=== PATIENT | female | born 1990 | race Caucasian/White ===

== ENCOUNTER 2024-05-28 20:52 | Emergency (ER) | payer SELFPAY ==
[2024-05-28] MEDS ORDERED: NA CHLORIDE 0.9% 2,000 ML ONE (21:32)
[2024-05-28] MEDS ORDERED: DICYCLOMINE HCL 20 MG/2 ML AMP IM ONE (21:32)
[2024-05-28] MEDS ORDERED: METOCLOPRAMIDE 10 MG/2mL INJ ONE (21:32)
[2024-05-28] MEDS ORDERED: ONDANSETRON 4 MG/2 ML VIAL ONE (21:32)
[2024-05-28] MEDS ORDERED: KETOROLAC 30 MG/ML INJ ONE (21:32)
[2024-05-28 21:52] LABS: Absolute Lymphocytes (CBC) 0.8 K/uL (0.7-4.9); Absolute Monocytes 0.4 K/uL (0.1-1.3); Absolute Neutrophil 14.8 K/uL (1.8-8.0); Basophils % 0.2 % (0-1.3); Hematocrit 41.2 % (36.0-45.0); Hemoglobin 14.1 g/dL (12.0-15.0); Lymphocytes % 4.8 % (15.3-44.8); MCHC 34.2 g/dL (32.0-36.0); MCV 93.4 fL (80-100); Monocytes % 2.7 % (3.3-12.3); Neutrophils % 92.3 % (41.7-73.7); Platelets 315 thou/uL (152-406)
[2024-05-28 22:05] LABS: Albumin 4.2 g/dL (3.4-5.0); Bilirubin Total 0.5 mg/dL (0.2-1.0); Globulin 4.2 g/dL (2.3-3.5); Protein, Total 8.4 g/dL (6.4-8.2)
[2024-05-28 22:40] LABS: Band Neutrophils 2 % (0-1); Blood Morphology Comment NOT SEEN (NOT SEEN); Differential Total Cells Count 100; Lymphocytes 3 % (15-42); Monocytes 5 % (0-10); Platelet Estimate ADEQ; Segmented Neutrophils 90 % (40-80)
[2024-05-29] MEDS ORDERED: PROMETHAZINE INJ 25 MG/ML AMP ONE ×2 (00:30→02:35)
[2024-05-29 01:15] LABS: Specific Gravity > 1.030 (1.005-1.030)
--- NOTE | 2024-05-29 01:18 | RAD REPORT ---
EXAM DESCRIPTION: Abdomen Pelvis W Contrast RadLex: CT ABDOMEN PELVIS WITH IV CONTRAST CLINICAL HISTORY: 33 years Female; ABD PAIN; IV ONLY Bed Name: 26 TECHNIQUE: CT of the abdomen and pelvis [with] intravenous contrast. All CT scans at this facility use dose modulation, iterative reconstruction, and/or weight based dosi ng when appropriate to reduce radiation dose to as low as reasonably achievable. COMPARISON: None. FINDINGS: Lower thorax: Lung bases are clear Abdomen: Stomach: Within normal limits Liver: No focal lesions. Enlarged. No intrahepatic ductal distention. Gallbladder: Nondistended Pancreas: Within normal limits Spleen: Subcentimeter hypodensities in the spleen, too small to characterize. Right kidney: No hydronephrosis. No focal lesion. Left kidney: No hydronephrosis. No focal lesion. Adrenal glands: Within normal limits Vascular structures: Within normal limits Nodes: No lymphadenopathy by size criteria Pelvis: Small bowel: No significant distention. Appendix: Within normal limits Colon: No distention or acute pericolonic edema. Peritoneum: No free intraperitoneal fluid or air. Bones: No acute bone findings. Bladder: Unremarkable. Reproductive organs: No acute findings. IMPRESSION: 1. No acute abdominopelvic findings. 2. Hepatomegaly. Electronically signed by: Velia Link MD 05/29/2024 01:12 AM [facility] Due to temporary technical issues with the PACS/Reonomy reporting system, reports are being trixie d by the in-house radiologist without review as a courtesy to ensure prompt reporting the interpreting radiologist is fully responsible for the content of the report. Transcribed Date/Time: 05/29/2024 1:18 AM
[2024-05-29 01:23] LABS: Specific Gravity > 1.030 (1.005-1.030); Sqamous Epithelial <5 /HPF (None Seen); Urine Bacteria <20 /HPF (<20); Urine Bilirubin NEGATIVE (Negative); Urine Blood Negative (Negative); Urine Clarity Clear (Clear); Urine Color Light-Yellow (Yellow); Urine Culture Reflex Order NOT NEEDED; Urine Glucose TRACE (Negative); Urine Ketones 4+ (Over) (Negative); Urine Microscopic Reflex YN ORDER UMIC; Urine Mucus Slight /HPF (None Seen); Urine Nitrite NEGATIVE (Negative); Urine Protein 1+ (Negative); Urine RBC <5 /HPF (None Seen); Urine Urobilinogen Normal (Normal); Urine WBC <5 /HPF (<5)
--- NOTE | 2024-05-29 01:44 | EDPHYS ---
Physician Documentation [facility] Name: Claire Brink Age: 33 yrs Sex: Female : 1990 Arrival Date: 05/28/2024 Time: 20:52 Bed 26 Private MD: ED Physician Myron Kim HPI: 05/28 21:23 This 33 yrs old Female presents to ER via Ambulatory with complaints of sp4 Vomiting, Weakness. 05/29 01:41 33-year-old female presents with moderate to severe vomiting and generalized weakness.. sp4 01:42 Patient reports symptoms started 2 days ago.. 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 - Infectious Disease History:: Denies. - Social history:: Smoking status: Reported history of juuling and/or vaping. - Family history:: not pertinent. ROS: 05/29 01:42 Constitutional: Negative for fever, chills, and weight loss, positive nausea, positive sp4 vomiting, positive generalized weakness, positive abdominal discomfort All other systems are negative, Exam: 01:42 Constitutional: This is a well developed, well nourished patient who is awake, alert, sp4 and in no acute distress. Head/Face: Normocephalic, atraumatic. Eyes: Pupils equal round and reactive to light, extra-ocular motions intact. Lids and lashes normal. Conjunctiva and sclera are not injected. Cornea within normal limits. Periorbital areas with no swelling, redness, or edema. ENT: Nares patent. No nasal discharge, no septal abnormalities noted. Tympanic membranes are normal and external auditory canals are clear. Oropharynx with no redness, swelling, or masses, exudates, or evidence of obstruction, uvula midline. Mucous membranes moist. Neck: Trachea midline, no thyromegaly or masses palpated, and no cervical lymphadenopathy. Supple, full range of motion without nuchal rigidity, or vertebral point tenderness. Chest/axilla: Normal chest wall appearance and motion. Nontender with no deformity. No lesions are appreciated. Cardiovascular: Regular rate and rhythm with a normal S1 and S2. No gallops, murmurs, or rubs. Normal PMI, no JVD. No pulse deficits. Respiratory: Lungs have equal breath sounds bilaterally, clear to auscultation and percussion. No rales, rhonchi or wheezes noted. No increased work of breathing, no retractions or nasal flaring. Abdomen/GI: Soft, with normal bowel sounds. No distension or tympany. No guarding or rebound. No evidence of tenderness throughout. Back: No spinal tenderness. No costovertebral tenderness. Skin: Warm, dry with normal turgor. Normal color with no rashes, no lesions, and no evidence of cellulitis. MS/ Extremity: Pulses equal, no cyanosis. Neurovascular intact. Full, normal range of motion. Neuro: Awake and alert, GCS 15, oriented to person, place, time, and situation. Cranial nerves II-XII grossly intact. Motor strength 5/5 in all extremities. Sensory grossly intact. Psych: Awake, alert, with orientation to person, place and time. Behavior, mood, and affect are within normal limits Vital Signs: 05/28 21:12 BP 131 / 91; Pulse 97; Resp 17; Temp 98.2(O); Pulse Ox 99% on R/A; Weight 52.16 kg; dd2 Height 4 ft. 10 in. ; Pain 8/10; 23:00 BP 126 / 75; Pulse 90; Resp 16; Pulse Ox 99% on R/A; jb4 23:54 BP 143 / 85; Pulse 95; Resp 16; Pulse Ox 99% on R/A; jb4 05/29 01:00 BP 125 / 93; Pulse 88; Resp 16; Pulse Ox 99% on R/A; jb4 02:00 BP 123 / 87; Pulse 90; Resp 16; Pulse Ox 99% on R/A; jb4 05/28 21:12 Body Mass Index 24.03 (52.16 kg, 147.32 cm) dd2 05/28 21:12 Pain Scale: Adult dd2 Eddie Coma Score: 01:42 Eye Response: spontaneous(4). Motor Response: obeys commands(6). Verbal Response: sp4 oriented(5). Total: 15. MDM: 05/28 22:47 Medical Screening Exam initiated sp4 /25 01:37 ED course: EXAM DESCRIPTION: Abdomen Pelvis W Contrast RadLex: CTABDOMEN PELVIS WITH IV sp4 CONTRAST CLINICAL HISTORY: 33 years Female; ABD PAIN; IV ONLYBed Name: 26 TECHNIQUE: CT of the abdomen and pelvis [with] intravenous contrast. All CT scans at this facility use dose modulation, iterative reconstruction, and/or weight based dosing when appropriate to reduce radiation dose to as low as reasonably achievable. COMPARISON: None. FINDINGS: Lower thorax: Lung bases are clear Abdomen: Stomach:Within normal limits Liver:No focal lesions. Enlarged. No intrahepatic ductal distention. Gallbladder:Nondistended Pancreas:Within normal limits Spleen:Subcentimeter hypodensities in the spleen, too small to characterize. Right kidney:No hydronephrosis. No focal lesion. Left kidney:No hydronephrosis. No focal lesion. Adrenal glands:Within normal limits Vascular structures:Within normal limits Nodes:No lymphadenopathy by size criteria Pelvis: Small bowel:No significant distention. Appendix:Within normal limits Colon:No distention or acute pericolonic edema. Peritoneum: No free intraperitoneal fluid or air. Bones: No acute bone findings. Bladder: Unremarkable. Reproductive organs: No acute findings. IMPRESSION: 1. No acute abdominopelvic findings. 2. Hepatomegaly. Electronically signed by: Velia Link MD 05/29/2024 . 01:43 Differential diagnosis: Nonspecific abd pain, gastritis, cholecystitis, diverticulitis, sp4 viral gastroenteritis, gastroenteritis. Data reviewed: vital signs, nurses notes, lab test result(s), radiologic studies, CT scan. Consideration of Admission/Observation Escalation of care including admission/observation considered. ED course: Patient does have elevated white count but CT abdomen pelvis negative for acute intra-abdominal abnormality. Patient stable for discharge home will provide prescriptions for ondansetron and Phenergan.. 05/28 21:01 Order name: CBC with Diff; Complete Time: 23:33 sp4 05/28 21:01 Order name: CMP; Complete Time: 23:33 sp4 05/28 21:01 Order name: Lipase; Complete Time: 23:33 sp4 05/28 21:01 Order name: Test, Urine; Complete Time: 01:38 sp4 05/28 21:01 Order name: Urinalysis w/ reflexes; Complete Time: 01:38 sp4 05/28 21:57 Order name: Manual Differential; Complete Time: 23:33 EDMS 05/28 23:33 Order name: CT Abd/Pelvis - IV Contrast Only 4 05/28 21:01 Order name: IV Saline Lock; Complete Time: 21:38 sp4 05/28 21:01 Order name: Labs collected and sent; Complete Time: 21:38 sp4 Administered Medications: 05/28 21:45 Drug: Ondansetron IVP 4 mg IVP once; over 2 minutes Route: IVP; Site: right antecubital;[facility] 05/29 02:03 Follow up: Response: No adverse reaction; Marked relief of symptoms [facility] 05/28 21:45 Drug: NS 0.9% IV 1000 ml IV at 1 bolus Per protocol; to be given as a bolus over 60 jb4 minutes Route: IV; Rate: 1 bolus; Site: right antecubital; 22:45 Follow up: Response: No adverse reaction; IV Status: Completed infusion; IV Intake: jb4 1000ml 21:45 Drug: metoCLOPramide IVP 10 mg IVP once; over 1 to 2 minutes Route: IVP; Site: right [facility] antecubital; 05/29 02:03 Follow up: Response: No adverse reaction; Marked relief of symptoms [facility] 05/28 21:45 Drug: Ketorolac IVP 30 mg IVP once Route: IVP; Site: right antecubital; [facility] 05/29 02:03 Follow up: Response: No adverse reaction; Marked relief of symptoms [facility] 05/28 21:45 Drug: Dicyclomine IM 20 mg IM once Route: IM; Site: right gluteus; [facility] 05/29 02:03 Follow up: Response: No adverse reaction; Marked relief of symptoms [facility] 05/28 21:45 Drug: NS 0.9% IV 1000 ml IV at 150 ml/hr Per protocol; to be given as a bolus over 60 jb4 minutes Route: IV; Rate: 150 ml/hr; Site: right antecubital; 05/29 02:02 Follow up: Rate change bolus [facility] 02:41 Follow up: IV Status: Completed infusion; IV Intake: 900ml ; Pt refused remaining jb4 fluids and wanted to be discharged 00:36 Drug: Promethazine IM 25 mg IM once Route: IM; Site: right gluteus; jb4 02:03 Follow up: Response: No adverse reaction; Marked relief of symptoms jb4 02:03 Drug: Ondansetron IVP 4 mg IVP once; over 2 minutes Route: IVP; Site: right antecubital;jb4 02:40 Follow up: Response: No adverse reaction; Nausea unchanged jb4 02:39 Drug: Promethazine IM 25 mg IM once Route: IM; Site: left gluteus; jb4 02:40 Follow up: Response: Medication administered at discharge. jb4 Disposition Summary: 05/29/24 01:44 Discharge Ordered Notes: Location: Home sp4 Problem: new sp4 Symptoms: have improved sp4 Condition: Stable sp4 Diagnosis - Acute gastroenteritis, nausea vomiting acute sp4 Followup: sp4 - With: Private Physician - When: 7 - 10 days - Reason: Recheck today's complaints Discharge Instructions: - Discharge Summary Sheet sp4 - Clear Liquid Diet, Adult, [id number] sp4 Forms: - Work release form sp4 - Patient Portal Instructions sp4 Prescriptions: - promethazine 25 mg Rectal suppository - insert 1 suppository RECTAL route every 8 hours as needed for nausea and sp4 vomiting; 12 suppository; Refills: 0, Product Selection Permitted - promethazine 25 mg Oral tablet - take 1 tablet ORAL route every 8 hours As needed PRN nausea; 30 tablet; sp4 Refills: 0, Product Selection Permitted - ondansetron 8 mg Oral Tablet,disintegrating - take 1 tablet ORAL route every 8 hours PRN nausea; 30 tablet; Refills: 0, sp4 Product Selection Permitted Signatures: Dispatcher [employer] EDTommy Gold, RN RN jb4 Myron Kim MD MD sp4 MAYTE LOCO RN RN dd2 Corrections: (The following items were deleted from the chart) 05/28 21: 21:01 CBC+H.LAB.BRZ ordered. EDMS EDMS 21: 21:01 COMPREHENSIVE METABOLIC PANEL+C.LAB.BRZ ordered. EDMS EDMS : 21:01 LIPASE+C.LAB.BRZ ordered. EDMS EDMS 21: 21:01 Test, Urine+UC.LAB.BRZ ordered. EDMS EDMS 21: 21:01 Urinalysis+U.LAB.BRZ ordered. EDMS EDMS
--- NOTE | 2024-05-29 01:44 | ER ---
Nurse's Notes [facility] Name: Claire Brink Age: 33 yrs Sex: Female : 1990 Arrival Date: 05/28/2024 Time: 20:52 Bed 26 Private MD: Diagnosis: Acute gastroenteritis, nausea vomiting acute Presentation: 05/28 21:12 Chief complaint: Patient states: UPPER STOMACH PAIN AND N/V X2 DAYS. Coronavirus dd2 screen: At this time, the client does not indicate any symptoms associated with coronavirus-19. Ebola Screen: No symptoms or risks identified at this time. Initial Sepsis Screen: Does the patient meet any 2 criteria? No. Patient's initial sepsis screen is negative. Does the patient have a suspected source of infection? No. Patient's initial sepsis screen is negative. Risk Assessment: Do you want to hurt yourself or someone else? Patient reports no desire to harm self or others. Onset of symptoms was May 26, 2024. 21:12 Method Of Arrival: Ambulatory dd2 21:12 Acuity: DOMINIQUE 3 dd2 Triage Assessment: 21:14 General: Appears in no apparent distress. uncomfortable, Behavior is cooperative, dd2 appropriate for age, crying. Pain: Complains of pain in right upper quadrant and left upper quadrant Pain does not radiate. Pain currently is 8 out of 10 on a pain scale. Quality of pain is described as crampy. GI: Abdomen is non-distended, Bowel sounds present X 4 quads. Abd is soft and non tender X 4 quads. Reports upper abdominal pain, cramping, nausea, vomiting. 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 - Infectious Disease History:: Denies. - Social history:: Smoking status: Reported history of juuling and/or vaping. - Family history:: not pertinent. Screenin/25 02:02 [facility] ED Fall Risk Assessment (Adult) History of falling in the last 3 months, jb4 including since admission No falls in past 3 months (0 pts) Confusion or Disorientation No (0 pts) Intoxicated or Sedated No (0 pts) Impaired Gait No (0 pts) Mobility Assist Device Used No (0 pt) Altered Elimination No (0 pt) Score/Fall Risk Level 0 - 2 = Low Risk Oriented to surroundings, Maintained a safe environment. Abuse screen: Denies threats or abuse. Nutritional screening: No deficits noted. Tuberculosis screening: No symptoms or risk factors identified. Assessment: 05/28 21:45 General: Appears in no apparent distress. uncomfortable, Behavior is calm, cooperative, jb4 appropriate for age. Pain: Complains of pain in right upper quadrant and left upper quadrant Pain does not radiate. Pain currently is 8 out of 10 on a pain scale. Neuro: Level of Consciousness is awake, alert, obeys commands, Oriented to person, place, time, situation. Cardiovascular: Patient's skin is warm and dry. Respiratory: Airway is patent Respiratory effort is even, unlabored, Respiratory pattern is regular, symmetrical. GI: Abdomen is flat, non-distended, Reports upper abdominal pain, diarrhea, nausea, vomiting. Derm: Skin is intact, Skin is pink, warm \T\ dry. Musculoskeletal: Circulation, motion, and sensation intact. Range of motion: intact in all extremities. 23:00 Reassessment: Patient appears in no apparent distress at this time. Patient and/or jb4 family updated on plan of care and expected duration. Pain level reassessed. Patient is alert, oriented x 3, equal unlabored respirations, skin warm/dry/pink. 23:54 Reassessment: Patient appears in no apparent distress at this time. Patient and/or jb4 family updated on plan of care and expected duration. Pain level reassessed. Patient is alert, oriented x 3, equal unlabored respirations, skin warm/dry/pink. 05/29 01:00 Reassessment: Patient appears in no apparent distress at this time. Patient and/or jb4 family updated on plan of care and expected duration. Pain level reassessed. Patient is alert, oriented x 3, equal unlabored respirations, skin warm/dry/pink. 02:00 Reassessment: Patient appears in no apparent distress at this time. Patient and/or jb4 family updated on plan of care and expected duration. Pain level reassessed. Patient is alert, oriented x 3, equal unlabored respirations, skin warm/dry/pink. 02:04 Reassessment: D/c pending completion of IV fluids. jb4 Vital Signs: 05/28 21:12 BP 131 / 91; Pulse 97; Resp 17; Temp 98.2(O); Pulse Ox 99% on R/A; Weight 52.16 kg; dd2 Height 4 ft. 10 in. ; Pain 8/10; 23:00 BP 126 / 75; Pulse 90; Resp 16; Pulse Ox 99% on R/A; jb4 23:54 BP 143 / 85; Pulse 95; Resp 16; Pulse Ox 99% on R/A; jb4 05/29 01:00 BP 125 / 93; Pulse 88; Resp 16; Pulse Ox 99% on R/A; jb4 02:00 BP 123 / 87; Pulse 90; Resp 16; Pulse Ox 99% on R/A; jb4 05/28 21:12 Body Mass Index 24.03 (52.16 kg, 147.32 cm) dd2 05/28 21:12 Pain Scale: Adult dd2 Mars Coma Score: 01:42 Eye Response: spontaneous(4). Motor Response: obeys commands(6). Verbal Response: sp4 oriented(5). Total: 15. ED Course: 05/28 20:55 Patient arrived in ED. im 21:00 Myron Kim MD is Attending Physician. sp4 21:14 Triage completed. dd2 21:14 Arm band placed on right wrist. dd2 21:38 Inserted saline lock: 22 gauge in right antecubital area, using aseptic technique. mm11 Blood collected. Flushed with 10 mL NS. 21:38 CBC with Diff Sent. mm11 21:38 CMP Sent. mm11 21:38 Lipase Sent. mm11 23:15 Tommy Reyes, RN is Primary Nurse. jb4 23:39 Radiology exam delayed due to test not completed at this time. rs4 05/29 00:18 CT Abd/Pelvis - IV Contrast Only In Process Unspecified. EDMS 02:02 Patient has correct armband on for positive identification. Bed in low position. Call jb4 light in reach. Side rails up X 1. Provided Education on: plan of care. 02:42 No provider procedures requiring assistance completed. IV discontinued, intact, jb4 bleeding controlled, No redness/swelling at site. Pressure dressing applied. Administered Medications: 05/28 21:45 Drug: Ondansetron IVP 4 mg IVP once; over 2 minutes Route: IVP; Site: right antecubital;[facility] 05/29 02:03 Follow up: Response: No adverse reaction; Marked relief of symptoms [facility] 05/28 21:45 Drug: NS 0.9% IV 1000 ml IV at 1 bolus Per protocol; to be given as a bolus over 60 jb4 minutes Route: IV; Rate: 1 bolus; Site: right antecubital; 22:45 Follow up: Response: No adverse reaction; IV Status: Completed infusion; IV Intake: jb4 1000ml 21:45 Drug: metoCLOPramide IVP 10 mg IVP once; over 1 to 2 minutes Route: IVP; Site: right jb4 antecubital; 05/29 02:03 Follow up: Response: No adverse reaction; Marked relief of symptoms [facility] 05/28 21:45 Drug: Ketorolac IVP 30 mg IVP once Route: IVP; Site: right antecubital; [facility] 05/29 02:03 Follow up: Response: No adverse reaction; Marked relief of symptoms [facility] 05/28 21:45 Drug: Dicyclomine IM 20 mg IM once Route: IM; Site: right gluteus; 4 05/29 02:03 Follow up: Response: No adverse reaction; Marked relief of symptoms [facility] 05/28 21:45 Drug: NS 0.9% IV 1000 ml IV at 150 ml/hr Per protocol; to be given as a bolus over 60 jb4 minutes Route: IV; Rate: 150 ml/hr; Site: right antecubital; 05/29 02:02 Follow up: Rate change bolus 4 02:41 Follow up: IV Status: Completed infusion; IV Intake: 900ml ; Pt refused remaining jb4 fluids and wanted to be discharged 00:36 Drug: Promethazine IM 25 mg IM once Route: IM; Site: right gluteus; jb4 02:03 Follow up: Response: No adverse reaction; Marked relief of symptoms 4 02:03 Drug: Ondansetron IVP 4 mg IVP once; over 2 minutes Route: IVP; Site: right antecubital;jb4 02:40 Follow up: Response: No adverse reaction; Nausea unchanged jb4 02:39 Drug: Promethazine IM 25 mg IM once Route: IM; Site: left gluteus; jb4 02:40 Follow up: Response: Medication administered at discharge. jb4 Medication: 02:42 VIS not applicable for this client. jb4 Intake: 05/28 22:45 IV: 1000ml; Total: 1000ml. jb4 05/29 02:41 IV: 900ml; Total: 1900ml. jb4 Outcome: 01:44 Discharge ordered by . sp4 02:42 Discharged to home ambulatory, jb4 02:42 Condition: stable 02:42 Discharge instructions given to patient, Instructed on discharge instructions, follow up and referral plans. medication usage, Demonstrated understanding of instructions, follow-up care, medications, Prescriptions given X 3, 02:43 Patient left the ED. jb4 Signatures: Dispatcher [employer] EDMS Tommy Reyes, RN RN jb4 Joaquina Gutierrez Sergey, MD MD sp4 Angeles Polanco DIANA, RN RN dd2 yesenia sierra mm11
[2024-05-29] MEDS ORDERED: ONDANSETRON 4 MG/2 ML VIAL ONE (01:50)
[2024-05-29 02:57] VITALS: TEMP 98.2; O2SAT 99
[2024-05-29 03:11] VITALS: BP 123/87
== END 2024-05-29 02:43 | disposition home or self-care (01) ==
LOC: ER 20:52
DX: K52.9 Noninfective gastroenteritis and colitis, unspecified (principal)
CPT/HCPCS: 36415; 74177; 80053; 81001; 81025; 83690; 85025; 96361; 96372; 96374; 96375; 99284; J0500; J2405; J2550; J2765; J7030; Q9967